=== PATIENT | female | born 1965 | race African-American/Black ===

== ENCOUNTER 2017-02-02 18:47 | Emergency (ER) | payer MEDICAID ==
[~2017-02-02] VITALS: Ht 165.1 cm; Wt 88.0 kg
[2017-02-02 18:49] VITALS: BP 155/108
== END 2017-02-02 22:00 | disposition left against medical advice (07) ==
LOC: ER 21:48
DX: R07.2 Precordial pain (principal); Z53.21 Procedure and treatment not carried out due to patient leaving prior to being seen by health care provider
CPT/HCPCS: 93005

== ENCOUNTER 2017-07-04 21:15 | Emergency (ER) | payer MEDICAID ==
[~2017-07-04] VITALS: Ht 165.1 cm; Wt 91.0 kg
[2017-07-04] MEDS: NITROGLYCERIN 0.4MG TABLET SL SL PRN (23:11)
[2017-07-04] MEDS: ASPIRIN 81MG TABLET PO ONE (23:11)
[2017-07-04 23:38] LABS: PROTHROMBIN TIME 10.3 sec (9.4-11.6)
[2017-07-04 23:39] LABS: BASOPHILS % 0.8 % (0.0-2.0); EOSINOPHILS % 1.5 % (0.0-5.0); HEMOGLOBIN. 14.1 g/dL (12.0-16.0); MEAN CORPUSCULAR VOLUME 80.4 fL (81.0-99.0); MEAN PLATELET VOLUME 7.9 fl (7.4-10.4); MONOCYTES % 11.8 % (2.0-8.0); NEUTROPHILS % 54.9 % (40.0-76.0); PLATELET 228 x1000/uL (130-400); RED BLOOD CELL COUNT 5.23 mill/uL (4.2-5.4); RED CELL DISTRIBUTION WIDTH 14.9 % (11.6-14.6)
[2017-07-05 00:12] LABS: CARBON DIOXIDE 28 mEq/L (21-32); CHLORIDE 100 mEq/L (98-107); ETHANOL BLOOD < 10 mg/dL; TROPONIN I < 0.02 ng/mL (0.00-0.04)
[2017-07-05 00:28] LABS: *AMPHETAMINES SCREEN URINE NEGATIVE (NEGATIVE); *BARBITURATES SCREEN URINE NEGATIVE (NEGATIVE); *BENZODIAZEPINES SCREEN URINE NEGATIVE (NEGATIVE); *COCAINE SCREEN URINE NEGATIVE (NEGATIVE); CANNABINOID URINE SCREEN NEGATIVE (NEGATIVE); METHADONE URINE SCREEN NEGATIVE (NEGATIVE); OPIATES URINE SCREEN NEGATIVE (NEGATIVE); PHENCYCLIDINE URINE SCREEN NEGATIVE (NEGATIVE)
[2017-07-05] MEDS: KETOROLAC 30MG/ML VIAL IV ONE (01:09)
[2017-07-05 01:56] VITALS: BP 122/71
== END 2017-07-05 01:57 | disposition home or self-care (01) ==
LOC: ER 21:59
DX: R07.2 Precordial pain (principal); I10 Essential (primary) hypertension; M32.9 Systemic lupus erythematosus, unspecified; Z88.0 Allergy status to penicillin
CPT/HCPCS: 36415; 71010; 80053; 80305; 83880; 84484; 85025; 85610; 93005; 96374; 99285; G0482; J1885; Z7610